=== PATIENT | male | born 1970 | race Two or more races ===

== ENCOUNTER → 2025-04-25 | Outpatient (CLI) | payer MEDICAID, SELFPAY ==
--- NOTE | 2025-04-25 09:00 | XR_ITS ---
Examination: MRI lumbar spine without contrast Date and time of exam: April 25, 2025, 0955 hours INDICATIONS: Low back pain radiating down the right leg numbness in both feet 15 years Technique: Multiple MRI axial and sagittal sections lumbar spine. Sagittal T2-weighted images, TR 3500, TE 118 T1 weighted transverse sections, TR 688 T8.5, T2-weighted sagittal sections T1 weighted sagittal sections TR 621, TE 30 T2 axial sections, TR 4, 190, TE 84. Findings: Satisfactory alignment lumbar vertebral bodies Advanced disc narrowing L4-L5, L5-S1 Diffuse lumbar disc desiccation L5-S1 5 mm central paracentral disc bulge contiguous with both the right and left S1 nerve roots and producing mild left L5 ganglionic compression L4-L5 4 mm central lumbar disc bulge L3-L4 small foraminal disc bulges L2-L3 no disc protrusion L1-L2 no disc protrusion IMPRESSION: Advanced degenerative disc disease L4-L5, L5-S1 L5-S1 5 mm central lumbar disc bulge contiguous with the right and left S1 nerve roots and producing mild left L5 ganglionic compression
== END | disposition home or self-care (01) ==
PROVIDERS: PCP Physician Assistant; Referring Provider Physician Assistant; Visit Provider Physician Assistant
DX: M51.370 Other intervertebral disc degeneration, lumbosacral region with discogenic back pain only (principal); M51.360 Other intervertebral disc degeneration, lumbar region with discogenic back pain only; G95.20 Unspecified cord compression
CPT/HCPCS: 72148